=== PATIENT | male | born 1950 | race African-American/Black ===

== ENCOUNTER 2021-09-08 13:44 | Emergency (ER) | payer OTHER ==
[~2021-09-08 13:44] MED LIST: Iopamidol 300 61% 100 ML VIAL FS ONE
[2021-09-08 14:45] LABS: Bilirubin Neg (Negative); Blood, Urine 50 (Negative); Clarity Cloudy (Clear); Glucose, Urine (Dipstick) Normal (Negative); Ketone, Urine 5 mg/dL (Negative); Leukocyte 500 (Negative); Nitrite Negative (Negative); Protein, Urine (Dipstick) 30 mg/dl (Neg-Trace)
[2021-09-08] MEDS ORDERED: Morphine 4 MG/ML VIAL ONE (14:46)
[2021-09-08] MEDS ORDERED: Ondansetron PF 4 MG/2 ML Vial ONE (14:46)
[2021-09-08 14:57] LABS: Hemoglobin 11.8 g/dL (13.5-17.5); MDiff Complete? YES; Mean Corpuscular HGB CONC 33.6 g/dL (32.0-36.0); Mean Corpuscular Hemoglobin 28.3 pg (27.0-33.0); Mean Corpuscular Volume 84.2 fl (81.2-95.1); Mean Platelet Volume 10.5 fl (7.4-10.4); Platelet Count 144 10x3/uL (150-450); RBC Distribution Width 13.7 % (11.5-14.5); Red Blood Cell (RBC) Count 4.17 10x6/uL (4.32-5.72); White Blood Cell (WBC) Count 6.7 10x3/uL (3.5-10.5)
[2021-09-08 15:06] LABS: Squamous Epithelial 0-3 HPF (0-3); WBC/HPF Greater than 50 HPF (0-3)
[2021-09-08 15:07] LABS: Bacteria/HPF 3+ HPF (None Seen); Renal Epithelial 0-3 HPF (None Seen)
[2021-09-08 15:14] LABS: ALT (SGPT) 29 U/L (8-55); AST (SGOT) 28 U/L (5-34); Albumin 3.5 g/dL (3.4-4.8); Alkaline Phosphatase 134 U/L (40-110); Anion Gap 14 mmol/L (10-20); BUN (Urea Nitrogen) 14 mg/dL (8.4-25.7); Bilirubin, Total 0.6 mg/dL (0.2-1.2); Calc. Creatinine Clearance 0 mL/min (70-130); Calcium 8.7 mg/dL (7.8-10.44); Carbon Dioxide 24 mmol/L (23-31); Chloride 98 mmol/L (98-107); Estimated GFR 92; Globulin 3.7 g/dL (2.4-3.5); Glucose 178 mg/dL (83-110); Potassium 4.2 mmol/L (3.5-5.1); Protein, Total 7.2 g/dL (5.8-8.1); Sodium 132 mmol/L (136-145)
[2021-09-08 15:22] LABS: Band 3 % (5-11); Lymphocytes 7 % (21-51); Monocytes 12 % (0-10); Neutrophil 78 % (42-75)
[2021-09-08 15:24] LABS: Platelet Morphology Comment Appears Adequate
[2021-09-08 15:28] LABS: RBC Morphology Normal
[2021-09-08] MEDS ORDERED: Meropenem 500 MG VIAL ONE ×2 (17:25→17:27)
[2021-09-08 19:40] LABS: SARS-CoV-2 NAA Rapid Test Not Detected (NotDetected)
[2021-09-08] MEDS ORDERED: Acetaminophen 500 MG TAB ONE (22:35)
== END 2021-09-08 23:48 | disposition short-term general hospital (02) ==
LOC: EEVIPCON 13:44 → CSHERS 13:44
DX: N49.2 Inflammatory disorders of scrotum (principal); I10 Essential (primary) hypertension; I25.10 Atherosclerotic heart disease of native coronary artery without angina pectoris; E11.9 Type 2 diabetes mellitus without complications; Z20.822 Contact with and (suspected) exposure to COVID-19
CPT/HCPCS: 36415; 74177; 80053; 81003; 81015; 83605; 84484; 85025; 87040; 93005; 96365; 96375; J2185; J2270; J2405; J3370; Q9967; U0002